=== PATIENT | female | born 1965 | race Caucasian/White ===

== ENCOUNTER → 2016-03-18 | Outpatient (CLI) | payer OTHER ==
--- NOTE | 2016-03-18 17:58 | US ---
Left lower extremity duplex venous Doppler INDICATION: Left leg pain and swelling. TECHNIQUE: Left lower extremity venous Doppler and grayscale evaluation is performed. FINDINGS: There is no evidence for DVT. The visualized superficial and deep systems demonstrate anton l flow and compressibility. IMPRESSION: No DVT. A message was left for Dr. Darrius Diego. The above findings were discussed with the patient.
== END ==
LOC: FIMAGING 16:53
PROVIDERS: ATTEND Orthopaedic Surgery Foot and Ankle Surgery
DX: M79.662 Pain in left lower leg (principal); M79.89 Other specified soft tissue disorders

== ENCOUNTER → 2017-01-27 | Outpatient (CLI) | payer OTHER | LOC: FIMAGING 07:08 | PROVIDERS: ATTEND Registered Nurse General Practice | DX: Z00.00 Encounter for general adult medical examination without abnormal findings (principal) ==

== ENCOUNTER 2017-04-25 17:33 | Emergency (ER) | payer OTHER ==
[2017-04-25 17:40] VITALS: RESP 18; TEMP 98.2
--- NOTE | 2017-04-25 17:50 | CPEKG ---
Heart Rate: 48 RR Interval: 1250 P-R Interval: 180 QRSD Interval: 86 QT Interval: 448 QTC Interval: 401 P Lyons: 50 QRS Lyons: 0 T Wave Lyons: 45 EKG Severity - OTHERWISE NORMAL ECG - EKG Impression: SINUS BRADYCARDIA Electronically Signed By: Carol Ann Zaragoza 25-Apr-2017 22:59:12
[2017-04-25 18:20] LABS: PLATELET COUNT 249 10^3/uL (150-400)
--- NOTE | 2017-04-25 18:30 | EDPHY ---
H & P Time Seen by Provider: 04/25/17 18:24 HPI/ROS: CHIEF COMPLAINT: Chest pain HISTORY OF PRESENT ILLNESS: The patient is a 51 y/o female complaining of constant chest pain, onset yesterday. She has been under extreme stress for 10 days. Stress causes back pain for which she had a massage a few days ago. Yesterday, she developed constant pain in the left side of her chest. The cp is mild and persistent, without aggrev/allev factors. No associated sx. Able to do her usual activities and sleep well, despite chest pain. No recent URI or fever. She denies history of hypertension, hypercholesterolemia, hormone use, blood clot, recent prolonged travel, or family history of cardiac issues. REVIEW OF SYSTEMS: A 10 point review of systems was performed and is negative with the exception of the elements mentioned in the history of present illness. Past Medical/Surgical History: Denies Social History: Non-smoker, lives in [place], employed Smoking Status: Former smoker Physical Exam: General Appearance: Alert, pleasant Eyes: Pupils equal and round, no conjunctival pallor or injection ENT, Mouth: Mucous membranes moist Neck: Normal inspection Respiratory: Lungs are clear to auscultation Cardiovascular: Regular rate and rhythm, point tenderness at left costochondral junction Gastrointestinal: Abdomen is soft and non-tender Neurological: A&O, nonfocal exam Skin: Warm and dry, no rash Extremities: Nontender, no pedal edema Psychiatric: Mood and affect normal Constitutional: Initial Vital Signs Temperature (C) 36.8 C 04/25/17 17:37 Heart Rate 68 04/25/17 17:37 Respiratory Rate 18 04/25/17 17:37 Blood Pressure 139/78 H 04/25/17 17:37 O2 Sat (%) 98 04/25/17 17:37 O2 Delivery Mode Room Air Allergies/Adverse Reactions: No Known Allergies Allergy (Verified 04/25/17 17:37) Home Medications: Medication Instructions Recorded Lamictal 02/24/16 Cotton [place] Carbonate 02/24/16 Seroquel 02/24/16 Medical Decision Making - Diagnostics EKG Interpretation: EKG interpreted by me reveals sinus bradycardia, rate 48, no ST or T segment changes. Imaging Results: Chest X-Ray 04/25/17 18:12 Impression: 1. Nothing acute. 2. Minimal airways disease and left basilar atelectasis. ED Course/Re-evaluation: The patient presents with 2 days of persistent chest pain. On exam her pain is localized to the left costochondral junction. Chest X-ray, EKG and labs were all normal. She reports being under a large amount of stress and feels her symptoms may be from stress. Labs/EKG/CXR normal. I informed her of the results of her workup. There is no evidence of an acute cardiopulmonary etiology for chest pain. After careful consideration and evaluation, I find no evidence of acute coronary syndrome. The patient has no risk factors for coronary disease, normal EKG and normal studies. I do not feel that repeat trop is indicated in this pt. In addition, I feel that I can safely exclude pulmonary embolism, with normal vital signs, normal oxygen saturation and no risk factors. In addition there is no evidence of pneumothorax, pneumonia, aortic dissection. I feel she is safe and stable for d/c home. Will f/u PCP/ cards. Differential Diagnosis: Differential diagnosis includes though it is not limited to pneumonia, pneumothorax, pulmonary embolism, aortic dissection, pericarditis, acute coronary syndrome. - Data Points Laboratory Results: Laboratory Results 04/25/17 17:55 04/25/17 17:55 Departure - Departure Disposition: Home, Routine, Self-Care Clinical Impression: Chest pain Qualifiers: Chest pain type: intercostal pain Qualified Code(s): R07.82 - Intercostal pain Condition: Good Instructions: Chest Pain (ED), Chest Wall Pain (ED) Additional Instructions: 1. Follow-up with your primary care provider in 1 to 2 days for continued chest pain. 2. Return to the emergency department for any shortness of breath, confusion, or other worsening of condition. Referrals: Chen Glass MD [Primary Care Provider] - As per Instructions Report Scribed for: Carol Ann Zaragoza Report Scribed by: Olivia Abdul Date of Report: 04/25/17 Time of Report: 18:29 Physician Review and Approval Statement: 04/25/17 18:29 Portions of this note were transcribed by a medical assistant. I personally performed a history, physical exam, medical decision making, and confirmed accuracy of information the transcribed note.
[2017-04-25 19:26] VITALS: BP 111/75; PULSE 60; O2SAT 96
== END 2017-04-25 19:25 | disposition home or self-care (01) ==
DX: R07.82 Intercostal pain (principal); Z87.891 Personal history of nicotine dependence

== ENCOUNTER → 2018-07-25 | Outpatient (CLI) | payer OTHER | LOC: FIMAGING 08:12 ==

== ENCOUNTER → 2018-08-06 | Outpatient (CLI) | payer OTHER | LOC: FIMAGING 14:45 ==